=== PATIENT | female | born 1990 ===

== ENCOUNTER 2017-12-31 04:42 | Day surgery (SDC) | payer OTHER ==
[2017-12-31 05:23] VITALS: BP 129/84; TEMP 98.4; BMI 31.1
[2017-12-31] MEDS ORDERED: Promethazine HCl 25 MG/ML VIAL IM/IV PRN (05:35)
[2017-12-31] MEDS ORDERED: Lactated Ringer's 1,000 ML IV SCH (05:45)
--- NOTE | 2017-12-31 06:20 | PDOC.EVN ---
Event Note - Event Note Event Note: H&P Dictated HPI: In brief, patient here of Dr Hernandez at 37 weeks 4 days, G1 with N/V. No contractions, no LOF, no VB. Afebrile. Partner not sick. Physical: Afebrile, BPs normal No RUQ pain on palpation by me. Abd soft and NT; no uterine tenderness, no contractions palpated CX FT, no VB Strip reactive with ut irritability Orders: Awaiting CMP, CBC, RUQ sono. IVFs ordered. A/P: I suspect prob gastroenteritis. No evidence PIH nor labor
[2017-12-31 06:30] LABS: ALT (SGPT) 16 U/L (8-55); AST (SGOT) 28 U/L (5-34); Albumin 3.2 g/dL (3.5-5.0); Alkaline Phosphatase 144 U/L (40-150); Anion Gap 14 mmol/L (10-20); BUN (Urea Nitrogen) 12 mg/dL (7.0-18.7); Bilirubin, Total 0.5 mg/dL (0.2-1.2); Calc. Creatinine Clearance 195 mL/min (70-130); Calcium 8.7 mg/dL (7.8-10.44); Carbon Dioxide 18 mmol/L (22-29); Chloride 108 mmol/L (98-107); Estimated GFR-MDRD Greater than 90; Glucose 86 mg/dL (70-105); Potassium 4.1 mmol/L (3.5-5.1); Protein, Total 6.2 g/dL (6.0-8.3); Sodium 136 mmol/L (136-145)
[2017-12-31 06:34] LABS: #Eosinphils 0.1 thou/uL (0.0-0.7); #Lymphocytes 1.5 thou/uL (1.20-3.40); #Monocytes 0.6 thou/uL (0.11-0.59); #Neutrophils 10.5 thou/uL (1.40-6.50); %Basophils 0.3 % (0.0-1.0); %Eosinophils 0.5 % (0.0-10.0); %Lymphocytes 11.7 % (21.0-51.0); %Monocytes 4.4 % (0.0-10.0); %Neutrophils 83.2 % (42.0-75.0); Hemoglobin 10.9 g/dL (12.0-16.0); Hypochromia SLIGHT = 6-15 cells (100X) (0-5/hpf); MDiff Complete? YES; Mean Corpuscular Hemoglobin 25.6 pg (27.0-31.0); Mean Corpuscular Volume 85.2 fL (78.0-98.0); Mean Platelet Volume 11.6 fL (7.4-10.4); PLT Morphology Comment Appears Adequate; Platelet Count 143 thou/uL (130-400); Polychromasia SLIGHT = 2-3 cells (100X) (0-2/hpf); RBC Distribution Width 14.8 % (11.5-14.5); Red Blood Cell (RBC) Count 4.25 mill/uL (4.20-5.40); White Blood Cell (WBC) Count 12.6 thou/uL (4.8-10.8)
--- NOTE | 2017-12-31 07:29 | PDOC.EVN ---
Event Note - Event Note Event Note: LFTs ok, CBC ok with slight WBC elevation at term RUQ sono negative by verbal Feels better OK for outpatient care with DX of gastroenteritis Vitals stable and afebrile
--- NOTE | 2017-12-31 07:32 | HP ---
DATE OF ADMISSION: 12/31/2017 TIME OF EVALUATION: 0535 hours. LOCATION: Labor and Delivery triage. This is a patient of Dr. Christine Hernandez. REASON FOR EVALUATION: Nausea and vomiting at 37 weeks and 4 days. HISTORY OF PRESENT ILLNESS: In brief, this is a 27-year-old, G1, P0, at 37 weeks and 4 days with talisha sea and vomiting, and vague diffuse abdominal pain. She denies contractions, vaginal bleeding, leaka ge of fluid or other complications. She denies recent trauma. She denies headache or visual changes . REVIEW OF SYSTEMS: Complete review of systems was done and is otherwise negative unless specified in the HPI. PAST SURGICAL HISTORY: Deviated nasal septum. ALLERGIES: None. SOCIAL HISTORY: Negative x3. PHYSICAL EXAMINATION: GENERAL: She is afebrile and normotensive. Clinically, she is in no acute distress. ABDOMEN: Soft and nontender. GENITOURINARY: On perineal inspection, there is no vaginal bleeding or evidence of ruptured membrane s. On monitoring, heart tones are reactive in the 130s to 140s with occasional uterine irrit ability. INTERVENTIONS ORDERED: I have ordered 2 liters of lactated ringer with Phenergan IV and a CMP, CBC, and a right upper quadrant ultrasound. ASSESSMENT: This is a 27-year-old, G1, P0, at 37 weeks and 4 days with nonspecific nausea and vomiti ng and diffuse abdominal discomfort. PLAN: 1. Await labs. 2. IV fluid hydration. 3. No evidence of labor, but we may check cervix prior to her discharge if she is given a dispositio n of going home. 4. Await ultrasound results. 5. Observation in Labor and Delivery.
--- NOTE | 2017-12-31 07:57 | ULT ---
GALLBLADDER ULTRASOUND: HISTORY: A 27-year-old female with a history of OB patient with nausea and vomiting at 37 weeks. FINDINGS: Liver echogenicity is somewhat coarse, evidence for nonspecific hepatic parenchymal process. The gal lbladder demonstrates no evidence of gallstones, wall thickening, edema, or pericholecystic fluid. N o significant right renal hydronephrosis. The pancreas is mostly obscured. No abnormal right upper quadrant fluid collection. IMPRESSION: Somewhat coarse liver echogenicity. No evidence of gallstones or ductal dilatation. POS: [facility]
== END 2017-12-31 07:50 | disposition home health service (06) ==
LOC: L&D/OP 04:42
PROVIDERS: ATTEND Obstetrics & Gynecology
DX: O21.2 Late vomiting of pregnancy (principal); O99.89 Other specified diseases and conditions complicating pregnancy, childbirth and the puerperium; R10.9 Unspecified abdominal pain; Z3A.37 37 weeks gestation of pregnancy; Z79.899 Other long term (current) drug therapy
CPT/HCPCS: 36415; 76705; 80053; 85025; 96360; 96361; 96375; 99283; J2550

== ENCOUNTER 2018-01-13 07:56 | Inpatient (IN) | payer OTHER ==
[2018-01-13 08:29] VITALS: BMI 31.8
[2018-01-13] MEDS ORDERED: Lidocaine 1% (PF) 30 ML VIAL SC PRN (08:49)
[2018-01-13] MEDS ORDERED: Carboprost 250 MCG/ML AMP IM PRN (08:49)
[2018-01-13] MEDS ORDERED: Promethazine HCl 25 MG/ML VIAL IM PRN ×2 (08:49→11:30)
[2018-01-13] MEDS ORDERED: Ondansetron PF 4 MG/2 ML Vial IVP PRN ×2 (08:49→11:30)
[2018-01-13] MEDS ORDERED: Acetaminophen 500 MG TAB PO PRN (08:49)
[2018-01-13] MEDS ORDERED: Zolpidem Tartrate 5 MG TAB PO PRN (08:49)
[2018-01-13] MEDS ORDERED: Ibuprofen 800 MG TAB PO PRN (08:49)
[2018-01-13] MEDS ORDERED: Methylergonovine 0.2 MG/ML VIAL IM PRN (08:49)
[2018-01-13] MEDS ORDERED: Misoprostol 200 MCG TAB PR PRN (08:49)
[2018-01-13] MEDS ORDERED: Meperidine HCl/PF 25 MG/ML VIAL IM/IV PRN (08:49)
[2018-01-13] MEDS ORDERED: Butorphanol Tartrate 1 MG/ML VIAL SLOW IVP PRN (08:49)
[2018-01-13] MEDS ORDERED: HYDROcodone/Acetaminophen 5/325 mg Tablet PO PRN ×2 (08:49)
--- NOTE | 2018-01-13 08:54 | PDOC.LDHP ---
Labor and Delivery H&P Chief complaint: contractions HPI: 27 yo WF G1 presents c/o painful UCs at home, now q 3-4 mins. Denies bleeding or SROM. Current gestational age (weeks): 39 Due date: 01/17/18 Dating criteria: last menstrual period Grav: 1 Para: 0 OB History Details: PNC with Dr. Hernandez w/o complications. Current complications: none Abnormal US findings: No Past Medical History: none Current medications: pre- vitamins Previous surgical history: other (deviated septum) Allergies/Adverse Reactions: Allergies Allergy/AdvReac Type Severity Reaction Status Date / Time No Known Allergies Allergy Verified 12/31/17 05:16 Social history: none - Physical Exam Vital signs reviewed and normal: yes General: breathing through contractions Heart: RRR Lungs: nonlabored breathing Abdomen: gravid Extremeties: trace edema FHT: category 1 [place] contractions every: q 3-5 mins - Vaginal Exam cm dilated: 2 Effacement: 75% Station: -1 - OB Labs Blood type: O RH: positive Antibody Screen: negative HIV: negative RPR: negative HEPSAg: negative 1 hour GCT: negative GBS: negative Rubella: immune - Assessment L&D Assessment: term patient in labor - Plan Plan: admit to L&D, informed consent obtained (Dr. Hernandez notified. Obseve for progress.), anesthesia consult for pain management
[2018-01-13] MEDS ORDERED: NS w/ Oxytocin 10 units 500 ML IV SCH (09:00)
[2018-01-13] MEDS ORDERED: Lactated Ringer's 1,000 ML IV SCH (09:00)
[2018-01-13] MEDS: Lactated Ringer's 1,000 ML IV SCH ×3 (09:43→20:32)
[2018-01-13 10:21] LABS: Hemoglobin 12.1 g/dL (12.0-16.0); Mean Corpuscular HGB CONC 33.6 g/dL (32.0-36.0); Mean Corpuscular Hemoglobin 28.8 pg (27.0-31.0); Mean Corpuscular Volume 85.7 fL (78.0-98.0); Mean Platelet Volume 11.6 fL (7.4-10.4); Platelet Count 133 thou/uL (130-400); RBC Distribution Width 15.5 % (11.5-14.5); Red Blood Cell (RBC) Count 4.19 mill/uL (4.20-5.40); White Blood Cell (WBC) Count 16.7 thou/uL (4.8-10.8)
[2018-01-13] MEDS ORDERED: Fentanyl 4 mcg/Bup 0.1% Cadd 100 ML ONE ×2 (10:37→17:47)
[2018-01-13 10:54] LABS: HBSAg Index 0.23 S/CO (0-0.99); Hep B Surf Ag Non-Reactive S/CO (NonReactive); Syphilis Antibody Nonreactive (Nonreactive); Syphilis Antibody Index 0.04 S/CO (<1.00 Non-Reactive)
[2018-01-13] MEDS ORDERED: diphenhydrAMINE 50 MG/ML VIAL IVP PRN (11:30)
[2018-01-13] MEDS ORDERED: Eucerin (Mineral Oil/Petrolatum,White) 30 gm Jar TOP PRN (11:30)
[2018-01-13] MEDS ORDERED: Communication Order-Pharmacy FS SCH (11:30)
[2018-01-13] MEDS ORDERED: ePHEDrine/0.9% NaCl/PF SYRINGE 50 mg/10 ml SLOW IVP PRN (11:30)
[2018-01-13] MEDS ORDERED: Naloxone HCl 0.4 mg/ml Vial IVP PRN ×2 (11:30)
[2018-01-13] MEDS ORDERED: Lactated Ringer's 500 ML IV PRN (11:30)
[2018-01-13] MEDS ORDERED: Fentanyl 4 mcg/Bupivacaine 0.1% Cassette 100 ML EPIDURAL SCH (11:30)
[2018-01-13] MEDS ORDERED: Acetaminophen 325 MG TAB PO PRN (11:30)
--- NOTE | 2018-01-13 12:16 | PDOC.EVN ---
Event Note - Event Note Event Note: Comfortable with epidural. SVE= 2/70-80/0, -1, vtx. AROM- bloody show with small amount of clear fluid. FHTs are reassurring with good BTBV. UCs q 2-3 mins. Plan: Watch progress.
--- NOTE | 2018-01-13 15:04 | PDOC.EVN ---
Event Note - Event Note Event Note: Last exam by labor RN was 4 cm with head well applied. FHTs stable. UCs q 2-3 mins. A/P; Progressing.Watch progress.
--- NOTE | 2018-01-13 19:23 | PDOC.EVN ---
Event Note - Event Note Event Note: Remains comfortable with epidural. Last exam was 8-9 cm. FHTs stable. Ucs q 2-3 min. Plan; watch progress, expect .
--- NOTE | 2018-01-13 22:10 | PDOC.EVN ---
Event Note - Event Note Event Note: Comfortable with epidural. SVE post lip, vtx at 0. Pitocin started an hour ago for no progress at 9 cm., now at 4 mu/min. Ucs now q 2-3 mins. Cont. pitocin, recheck in 1 hour.
--- NOTE | 2018-01-13 23:06 | PDOC.EVN ---
Event Note - Event Note Event Note: Now complete. Fhts stable. Pit at 4 mu/min. Begin pushing.
[2018-01-14] MEDS ORDERED: Fentanyl 4 mcg/Bup 0.1% Cadd 0 ML ONE (00:19)
[2018-01-14] MEDS: NS / Oxytocin 40 units/1000ml 1,000 ML IV PRN ×2 (01:03→02:08)
--- NOTE | 2018-01-14 01:22 | PDOC.OPDEL ---
OB Operative/Delivery Note Delivery Dr/Surgeon: Tamara Assist: Buse Pre-Delivery Diagnosis: active labor Procedure/Post Delivery Dx: spontaneous vaginal delivery Weeks gestation: 39 Anesthesia: epidural - Additional Findings/Plan Placenta delivered: spontaneous Repaired Obstetrical Laceration: 2nd degree Estimated blood loss: QBL pending. Compilations/Other Findings: Viable male over 2* MLE. Moderate mec seen. Apgars 7/9. Repaired in layers with 2-0 chromic. Atony x 1 tx. with Methergine x 1, massage and pit drip with good effect. Post delivery plan: routine recovery
[2018-01-14 01:43] LABS: Actual Bicarbonate (HCO3a) 30.3 mEq/L (22-28); Base Excess (BEa) -13.4 mEq/L (-2.0 to +3.0); pH (Cord, venous) 7.21 (7.32-7.43)
[2018-01-14 01:44] LABS: Actual Bicarbonate (HCO3v) 19 mEq/L (22-28); Base Excess -8.7 mEq/L (-2.0 to +3.0)
[2018-01-14] MEDS ORDERED: Benzocaine/Menthol 20-0.5% 60 ML CAN TOP PRN (02:14)
[2018-01-14] MEDS ORDERED: Acetaminophen 325 MG TAB PO SCH (02:14)
[2018-01-14] MEDS ORDERED: Preparation H Ointment 28 GM TUBE PR PRN (02:14)
[2018-01-14] MEDS ORDERED: NS / Oxytocin 40 units/1000ml 1,000 ML IV SCH (02:14)
[2018-01-14] MEDS ORDERED: Bisacodyl 10 MG SUPP PR PRN (02:14)
[2018-01-14] MEDS ORDERED: Ondansetron PF 4 MG/2 ML Vial IVP PRN (02:14)
[2018-01-14] MEDS ORDERED: Adacel (T-DAP) 0.5 ML SYRINGE IM ONE (02:14)
[2018-01-14] MEDS ORDERED: Milk Of Magnesia 30 ML UDCUP PO PRN (02:14)
[2018-01-14] MEDS ORDERED: Lanolin Ointment 7 GM TUBE TOP PRN (02:14)
[2018-01-14] MEDS: HYDROcodone/Acetaminophen 5/325 mg Tablet PO PRN ×2 (03:01→20:32)
[2018-01-14 07:19] LABS: Mean Corpuscular HGB CONC 33.2 g/dL (32.0-36.0); Mean Corpuscular Hemoglobin 28.4 pg (27.0-31.0); Mean Corpuscular Volume 85.7 fL (78.0-98.0); Mean Platelet Volume 11.5 fL (7.4-10.4); Platelet Count 125 thou/uL (130-400); Red Blood Cell (RBC) Count 4.22 mill/uL (4.20-5.40); White Blood Cell (WBC) Count 25.3 thou/uL (4.8-10.8)
[2018-01-14] MEDS: Ibuprofen 800 MG TAB PO SCH ×3 (08:42→20:32)
[2018-01-14] MEDS: Docusate Calcium (SURFAK) 240 MG CAP PO SCH ×2 (08:42→20:32)
[2018-01-14] MEDS: Ferrous Sulfate 325 MG TAB PO SCH ×2 (08:42→22:41)
[2018-01-14] MEDS ORDERED: Bupivacaine 0.25% HCL 30 ML VIAL ONE (11:11)
--- NOTE | 2018-01-15 00:45 | PDOC.PP ---
Post Progress Note Post Day #: 1 Subjective: Doing well, expressed desire for home discharge today. I discussed observation standard as 48 hrs, and that nursery stated baby will stay for 48 hrs. She will stay for routine PP care. PO intake tolerated: yes Flatus: yes Ambulation: yes Vital Signs (12 hours) Temp Pulse Resp BP Pulse Ox 01/14/18 23:52 98.6 F 78 16 121/64 01/14/18 20:00 83 16 118/67 99 01/14/18 17:43 97.7 F 82 17 119/71 01/14/18 15:25 98.2 F 82 16 136/78 Weight Weight 191 lb - Physical Examination General: NAD Cardiovascular: no m/r/g Respiratory: clear to auscultation bilaterally Abdominal: + bowel sounds, lochia, no distention Extremities: negative homans (B) Neurological: no gross focal deficits Psychiatric: A&Ox3, normal affect Result Diagrams: 01/14/18 06:45 Additional Labs: Post Labs Blood Type O POSITIVE 01/13/18 10:06 Hep Bs Antigen Non-Reactive S/CO (NonReactive) 01/13/18 10:06 (1) Vaginal delivery Code(s): O80 - ENCOUNTER FOR FULL-TERM UNCOMPLICATED DELIVERY Status: Acute - Assessment/Plan PPD1 from with Dr Ladd (For Mary): baby will stay until DOL 2 Plan: Patient will stay for routine care No acute complications identified
[2018-01-15] MEDS: Ibuprofen 800 MG TAB PO SCH ×2 (04:50→13:32)
[2018-01-15] MEDS: Ferrous Sulfate 325 MG TAB PO SCH (07:26)
[2018-01-15 08:24] VITALS: BP 102/64; TEMP 97.7
[2018-01-15] MEDS: Docusate Calcium (SURFAK) 240 MG CAP PO SCH (09:24)
[2018-01-15] MEDS: HYDROcodone/Acetaminophen 5/325 mg Tablet PO PRN (12:10)
--- NOTE | 2018-01-15 15:26 | PDOC.EVN ---
Event Note - Event Note Event Note: Wants to go home after baby's circumcision this PM. VSS, AF PP Hgb= 12. Will DC home with precautions. RTC [address] Hernandez.
== END 2018-01-15 17:05 | disposition home or self-care (01) | DRG 807 ==
LOC: L&D/OP 07:56 → L&D 09:00 → 3SW 01-14 15:29
PROVIDERS: ADMIT Obstetrics & Gynecology; ATTEND Obstetrics & Gynecology
PROC: 10E0XZZ Delivery of Products of Conception, External Approach (ICD-10-PCS; principal; 2018-01-14)
PROC: 0KQM0ZZ Repair Perineum Muscle, Open Approach (ICD-10-PCS; 2018-01-14)
DX: O70.1 Second degree perineal laceration during delivery (principal); Z37.0 Single live birth; Z3A.39 39 weeks gestation of pregnancy
CPT/HCPCS: 36415; 51702; 82805; 85027; 86780; 86850; 86900; 86901; 87340; 88307; 99285; J0595; J2001; J2210; J3490; S0020